=== PATIENT | female | born 1975 | race Two or more races ===

== ENCOUNTER 2016-10-28 16:32 | Emergency (ER) | payer SELFPAY ==
[~2016-10-28] VITALS: Ht 154.9 cm; Wt 77.1 kg
[~2016-10-28 16:32] MED LIST: CIPR-263 PO; IBUP-51 PO
[2016-10-28 17:20] VITALS: BP 136/81
[2016-10-28] MEDS ORDERED: KETOROLAC TROMETHAMINE INJ 60 MG/2 ML VIAL IM ONE ×2 (17:58→18:00)
[2016-10-28] MEDS ORDERED: ONDANSETRON 4 MG TAB.RAPDIS ONE (17:58)
[2016-10-28] MEDS ORDERED: ONDANSETRON 4 MG TAB.RAPDIS PO ONE (18:00)
--- NOTE | 2016-10-28 18:01 | NUR ---
PAIN MEDS GIVEN ORDERED
--- NOTE | 2016-10-28 18:02 | NUR ---
SEEN BY PA; RE-ASSESSED AFTER THE PAIN MEDICATION
== END 2016-10-28 18:22 | disposition home or self-care (01) ==
LOC: ER 16:34
DX: M26.621 Arthralgia of right temporomandibular joint (principal); R51 Headache; Z88.0 Allergy status to penicillin
CPT/HCPCS: A4606; J1885; Q0162; Z7610